=== PATIENT | male | born 1990 | race American Indian/Alaskan Native ===

== ENCOUNTER 2017-03-25 12:06 | Emergency (ER) | payer MEDICAID ==
[2017-03-25 12:17] VITALS: BP 117/87; PULSE 85; RESP 18; TEMP 99; O2SAT 99
--- NOTE | 2017-03-25 12:31 | ED PDOC ---
Lower Extremity Pain/Injury Time Seen by Provider: 03/25/17 12:21 Chief Complaint (Nursing): Lower Extremity Problem/Injury Chief Complaint (Provider): Right groin pain History Per: Patient History/Exam Limitations: no limitations Onset/Duration Of Symptoms: Days (2) Current Symptoms Are (Timing): Still Present Additional History Per: Patient Additional Complaint(s): 27yo male, presents to the ED for evaluation of right groin pain for the past 2 days. Patient complaining of a painful bump to his right groin; he reports he has been sexually active but denies any pain during intercourse. He denies any fever, chills, burning upon urination, lesions on his penis. No other complaints. Past Medical History Reviewed: Historical Data, Nursing Documentation, Vital Signs Vital Signs: Last Vital Signs Temp 99.0 F 03/25/17 12:14 Pulse 85 03/25/17 12:14 Resp 18 03/25/17 12:14 BP 117/87 03/25/17 12:14 Pulse Ox 99 03/25/17 12:14 - Medical History PMH: No Chronic Diseases - Surgical History Surgical History: No Surg Hx - Family History Family History: States: No Known Family Hx - Home Medications Home Medications: Ambulatory Orders Medication Instructions Recorded Sulfamethoxazole/Trimethoprim 1 tab PO BID #14 tab 03/25/17 [Bactrim DS 800 mg-160 mg] - Allergies Allergies/Adverse Reactions: Allergies Allergy/AdvReac Type Severity Reaction Status Date / Time No Known Allergies Allergy Verified 03/25/17 12:14 Review of Systems Constitutional: Negative for: Fever, Chills Genitourinary Male: Positive for: Other (pain to right groin). Negative for: Dysuria, Frequency, Hematuria, Penile Discharge Physical Exam - Reviewed Nursing Documentation Reviewed: Yes Vital Signs Reviewed: Yes - Physical Exam Appears: Positive for: Non-toxic, No Acute Distress Skin: Positive for: Normal Color Eye Exam: Positive for: Normal appearance Neck: Positive for: Supple Respiratory: Negative for: Respiratory Distress Male Genital Exam: Positive for: other (1x1 cm lesions noted to bilateral groin region; lesion on right noted to be weeping.). Negative for: bleeding, erythema , lesions Neurologic/Psych: Positive for: Alert, Oriented - ECG O2 Sat by Pulse Oximetry: 99 (RA) Pulse Ox Interpretation: Normal Medical Decision Making Medical Decision Making: Time: 1220 Impression: Folluciltis, abscess Plan: -- Genital exam performed with RN Radha as marina manager. -- Patient to be d/c home on antibioitcs. Informed to apply warm compresses to area. Also given instructions for follow up at [facility]. Scribe Attestation: Documented by Krystal Cordoba acting as a scribe for THAIS Carrillo Provider Attestation: All medical record entries made by the Scribe were at my direction and personally dictated by me. I have reviewed the chart and agree that the record accurately reflects my personal performance of the history, physical exam, medical decision making, and the department course for this patient. I have also personally directed, reviewed, and agree with the discharge instructions and disposition. Disposition - Clinical Impression Clinical Impression: Folliculitis, Abscess - Disposition Referrals: [facility] at [place] [Outside] Condition: GOOD Additional Instructions: warm compress apply to area Prescriptions: Sulfamethoxazole/Trimethoprim [Bactrim DS 800 mg-160 mg] 1 tab PO BID #14 tab Instructions: Folliculitis (ED) Forms: [facility] ([place])
== END 2017-03-25 13:23 | disposition home or self-care (01) ==
LOC: H.ER 12:06
DX: L73.9 Follicular disorder, unspecified (principal)